=== PATIENT | male | born 1985 | race Asian ===

== ENCOUNTER 2016-11-24 22:15 | Emergency (ER) | payer OTHER ==
[~2016-11-24] VITALS: Ht 175.3 cm; Wt 74.8 kg
[2016-11-24 22:26] VITALS: BP 122/75
--- NOTE | 2016-11-24 22:34 | NUR ---
VISION ACUITY RT EYE 20/40, LFT EYE 20/30, BOTH 20/30
--- NOTE | 2016-11-25 00:11 | NUR ---
PT TAKEN TO BED 4
--- NOTE | 2016-11-25 00:19 | NUR ---
Dr. Vasquez evaluating patient at bedside.
[2016-11-25] MEDS ORDERED: TETRACAINE HCL/PF 0.5% OPTH 4 ML BTL ONE (00:33)
[2016-11-25] MEDS ORDERED: TETRACAINE HCL/PF 0.5% OPTH 4 ML BTL OP ONE (00:50)
[2016-11-25 00:54] VITALS: BP 122/75
--- NOTE | 2016-11-25 00:55 | NUR ---
Patient discharged with v/s stable. Written and verbal after care instructions given and explained. Patient verbalized understanding. Ambulatory with steady gait. All questions addressed prior to discharge. Advised to follow up with PMD.
== END 2016-11-25 00:55 | disposition home or self-care (01) ==
LOC: MED 22:15
DX: H10.9 Unspecified conjunctivitis (principal); R03.0 Elevated blood-pressure reading, without diagnosis of hypertension
CPT/HCPCS: 87070; 99283